=== PATIENT | female | born 1960 | race African-American/Black ===

== ENCOUNTER 2016-08-18 20:09 | Emergency (ER) | payer OTHER ==
[~2016-08-18] VITALS: Ht 157.5 cm; Wt 118.0 kg
[2016-08-18] MEDS ORDERED: BACITRACIN ZINC OINT UDPKT TOP ONE (22:30)
[2016-08-18] MEDS ORDERED: LIDOCAINE HCL 1% 20ML VIAL (Pyxis) INJ INFIL ONE (22:30)
[2016-08-19 00:52] VITALS: BP 148/90
== END 2016-08-19 01:15 | disposition home or self-care (01) ==
LOC: ER 21:31
DX: L02.91 Cutaneous abscess, unspecified (principal)
CPT/HCPCS: 10060; 99283; J3490; Z7610